=== PATIENT | female | born 1975 | race Caucasian/White ===

== ENCOUNTER → 2021-09-15 | Outpatient (CLI) | payer OTHER ==
--- NOTE | 2021-09-21 13:39 | USB ---
Reason for Exam: Clinical finding. Indicated Problems: Non-bloody discharge of the left side (White) for 2 Month(s). Patient History: Menarche at age 12. First Full-Term at age 18. Patient has history of breast feeding. Risk Values: Laverne 5 year model risk: 0.7%. NCI Lifetime model risk: 7.6%. Tissue Density: The breast tissue is heterogeneously dense. This may lower the sensitivity of mammography. Findings: Analyzed By CAD. Mammogram No evidence for mass or distortion. No suspicious calcifications. Findings: Patient states discharge at small superficial raised area. Anechoic area at skin line measuring 1mm. No solid or cystic mass seen. Overall Assessment: Benign, BI-RAD 2 Assessment: MG diagnostic mammo w CAD BRIAN - Bilateral: Incomplete: need additional imaging evaluation, BI-RAD 0 - Left. US breast LT - Left: Benign, BI-RAD 2. Management: Screening Mammogram of both breasts in 1 year. A clinical breast exam by your physician is recommended on an annual basis and results should be correlated with mammographic findings. Results were given to the patient verbally at the time of exam. Electronically signed and approved by: Gunner Martel M.D. Radiologis
== END | disposition home or self-care (01) ==
LOC: RADMAMWWP 08:03
PROVIDERS: ATTEND Family Medicine
DX: N61.1 Abscess of the breast and nipple (principal); N64.52 Nipple discharge; Z87.2 Personal history of diseases of the skin and subcutaneous tissue
CPT/HCPCS: 77066

== ENCOUNTER → 2023-10-04 | Outpatient (CLI) | payer OTHER ==
--- NOTE | 2023-10-04 13:49 | XR ---
EXAMINATION TYPE: XR lumbosacral spine min 4V DATE OF EXAM: 10/04/2023 CLINICAL HISTORY: pain COMPARISON: NONE TECHNIQUE: Frontal, lateral, and oblique images of the lumbar spine are obtained. FINDINGS: There are 5 lumbar type vertebral bodies identified. The lumbar spine shows satisfactory alignment without evidence of acute fracture or dislocation. Vertebral body heights are within normal limits. Moderate degenerative disc space narrowing L3-4 through L5-S1. The overlying soft tissue a ppears unremarkable. IMPRESSION: No acute fracture or dislocation is seen in the lumbar spine.ICD 10 NO FRACTURE, INITIAL EVALUATION
== END | disposition home or self-care (01) ==
LOC: RADXRMAIN 13:23
PROVIDERS: ATTEND Family Medicine
DX: M51.36 Other intervertebral disc degeneration, lumbar region (principal)
CPT/HCPCS: 72110

== ENCOUNTER → 2023-10-10 | Outpatient (CLI) | payer OTHER ==
--- NOTE | 2023-10-11 08:22 | MM ---
Reason for Exam: Screening (asymptomatic). Last mammogram was performed 2 year(s) and 1 month(s) ago. Patient History: Menarche at age 12. First Full-Term at age 18. Postmenopausal. Patient has history of breast feeding. Risk Values: Laverne 5 year model risk: 0.8%. NCI Lifetime model risk: 7.4%. Prior Study Comparison: 09/15/2021 Bilateral MG diagnostic mammo w CAD BRIAN, [facility]. Tissue Density: There are scattered areas of fibroglandular density. Findings: Analyzed By CAD. There is no suspicious group of microcalcifications or new suspicious mass in either breast. A benign calcifications. Overall Assessment: Benign, BI-RAD 2 Management: Screening Mammogram of both breasts in 1 year. . Patient should continue monthly self-breast exams. A clinical breast exam by your physician is recommended on an annual basis. This exam should not preclude additional follow-up of suspicious palpable abnormalities. Note on Laverne scores and lifetime risk: 1. A Laverne score greater than 3% is considered moderate risk. If this is the case, consider specialist referral to assess eligibility for a risk reducing agent. 2. If overall lifetime risk for the development of breast cancer is 20% or higher, the patient may qualify for future screening with alternating mammogram and breast MRI. Electronically signed and approved by: Rei Thakur M.D. Radiologis
== END | disposition home or self-care (01) ==
LOC: RADMAMWWP 07:16
PROVIDERS: ATTEND Family Medicine
DX: Z12.31 Encounter for screening mammogram for malignant neoplasm of breast (principal); R92.323 Mammographic fibroglandular density, bilateral breasts; Z78.0 Asymptomatic menopausal state
CPT/HCPCS: 77067

== ENCOUNTER → 2024-09-08 | Outpatient (CLI) | payer OTHER ==
--- NOTE | 2024-09-08 10:01 | US ---
EXAMINATION TYPE: US liver DATE OF EXAM: 09/08/2024 COMPARISON: NONE CLINICAL INDICATION: Female, 49 years old with history of B18.2 CHRONIC VIRAL HEPATITIS C; hep C TECHNIQUE: Grayscale and color Doppler imaging of the right upper quadrant was performed. FINDINGS: EXAM MEASUREMENTS: Liver Length: 14.7 cm Gallbladder Wall: 0.2 cm CBD: 0.8 cm Right Kidney: 11.3 x 5.2 x 4.4 cm NETWORK SUPPORT ENGINEER NOTES: Pancreas: duct measuring 0.39 cm at the proximal body. Normal less than 0.2 cm. Liver: heterogeneous appearance Gallbladder: single gallstone seen measuring 1.2cm Evidence for sonographic Antony's sign: No CBD: appears dilated distally Right Kidney: wnl IMPRESSION: 1. Cholelithiasis. 2. Prominence of the pancreatic duct within the body of the pancreas. Consider follow-up ERCP. [facility], , 09/08/2024 9:59 AM
[2024-09-08 15:13] LABS: HCT 46.4 % (37.2-46.3); HGB 14.8 g/dL (12.0-15.0); MCHC 31.9 g/dL (32.0-37.0); MCV 97.1 FL (80.0-97.0); Mean Platelet Volume 10.4 FL (9.5-12.2); NRBC Per 100 WBC 0 X 10*3/uL (0.00-0.01); Platelet Count 257 X 10*3/uL (140-440); RBC 4.78 X 10*6/uL (4.10-5.20); RDW 13.5 % (11.5-14.5); WBC 6.74 X 10*3/uL (4.50-10.00)
[2024-09-08 15:14] LABS: Basophils # (A) 0.05 X 10*3/uL (0.00-0.10); Basophils % (A) 0.7 %; Eosinophils # (A) 0.15 X 10*3/uL (0.04-0.35); Eosinophils % (A) 2.2 %; Lymphocytes # (A) 2.21 X 10*3/uL (0.90-5.00); Lymphocytes % (A) 32.8 %; Monocytes # (A) 0.54 X 10*3/uL (0.20-1.00); Neutrophils # (A) 3.77 X 10*3/uL (1.80-7.70)
[2024-09-08 15:21] LABS: ALT 40 U/L (8-44); AST 43 U/L (13-35); Albumin 4.2 g/dL (3.8-4.9); Alkaline Phosphatase 101 U/L (41-126); Blood Urea Nitrogen 11.2 mg/dL (9.0-27.0); Calcium 9.8 mg/dL (8.7-10.3); Carbon Dioxide 30.6 mmol/L (21.6-31.8); Chloride 102 mmol/L (96-109); Glucose 114 mg/dL (70-110); Potassium 4.7 mmol/L (3.5-5.5); Sodium 143 mmol/L (135-145); Total Bilirubin 0.4 mg/dL (0.3-1.2); Total Protein 7.2 g/dL (6.2-8.2)
== END | disposition home or self-care (01) ==
LOC: RADUSWWP 09:21
PROVIDERS: ATTEND Internal Medicine Gastroenterology
DX: K80.20 Calculus of gallbladder without cholecystitis without obstruction (principal); B18.2 Chronic viral hepatitis C
CPT/HCPCS: 76705; 80053; 81596; 82105; 85025